=== PATIENT | female | born 1985 | race Caucasian/White ===

== ENCOUNTER 2017-06-22 07:08 | Day surgery (SDC) | payer OTHER ==
[2017-06-22] MEDS ORDERED: NS 1,000 ML IV ONE (07:20)
--- NOTE | 2017-06-22 07:38 | CPEKG ---
Heart Rate: 92 RR Interval: 652 P-R Interval: 140 QRSD Interval: 82 QT Interval: 336 QTC Interval: 416 P [place]: 78 QRS [place]: 83 T Wave [place]: 29 EKG Severity - ABNORMAL ECG - EKG Impression: SINUS RHYTHM EKG Impression: RIGHT ATRIAL ABNORMALITY Electronically Signed By: Dean Marie 22-Jun-2017 08:44:43
--- NOTE | 2017-06-22 07:54 | PDANEPAE ---
ANE History of Present Illness 32 yo female with h/o tachycardia. ANE Past Medical History - Cardiovascular History Hx Hypertension: No Hx Arrhythmias: Yes Hx Chest Pain: No Cardiovascular History Comment: POTS - postural orthostatic tachycardia syndrome - Pulmonary History Hx COPD: No Hx Asthma/Reactive Airway Disease: Yes Hx Recent Upper Respiratory Infection: Yes Hx Oxygen in Use at Home: No Pulmonary History Comment: RAD - last inhaler use about 2 weeks ago. Has about a yearly ER visit for RAD, No intubations. Current sore throat. Strep culture negative. No other symptoms - no cough, nasal congestion/rhinorrhea, fever - Neurologic History Hx Cerebrovascular Accident: No Hx Seizures: No Neurologic History Comment: restless leg syndrome. narcolepsy - Endocrine History Hx Diabetes: No Hypothyroid: Yes Endocrine History Comment: h/o hypothyroidism, no current meds. h/o hyperaldosteronism and adrenal insufficiency, all resolved - Renal History Hx Renal Disorders: No - Liver History Hx Hepatic Disorders: No - Neurological & Psychiatric Hx Hx Neurological and Psychiatric Disorders: Yes Neurological / Psychiatric History Comment: MDD - had ECT in 2012, now manages with meds - Cancer History Hx Cancer: No - GI History GERD: mild - Chronic Pain History Chronic Pain: No ANE Review of Systems Review of Systems: - Systems Constitutional: Reports: no symptoms EENMT: Reports: sore throat (since beginning of May - Strep test negative, no other symptoms) Cardiac: Reports: irregular heart rate Respiratory: Reports: no symptoms ANE Patient History - Allergies Allergies/Adverse Reactions: Penicillins Allergy (Verified 06/17/17 11:33) Rash - Home Medications Home Medications: Albuterol [Proventil Inhaler HFA (*)] 1 - 2 puffs IH DAILY PRN 06/17/17 [Last Taken Unknown] Cetirizine [ZyrTEC 10 mg (*)] 10 mg PO DAILY 06/17/17 [Last Taken Unknown] Fludrocortisone Acetate [Florinef 0.1 MG (RX)] 0.1 mg PO DAILY 06/17/17 [Last Taken Unknown] Gabapentin [Neurontin 300 MG (*)] 600 mg PO HS 06/17/17 [Last Taken Unknown] Levomefolate/Algal Oil [Deplin-Algal Oil 15 mg Capsule] 1 each PO DAILY [Last Taken Unknown] Lisdexamfetamine Dimesylate [Vyvanse] 50 mg PO DAILY 06/17/17 [Last Taken Unknown] Mometasone 220Mcg Inhaler [Asmanex Inh (*)] 2 - 4 puffs IH BID 06/17/17 [Last Taken Unknown] Montelukast Sodium [Singulair 10 mg (*)] 10 mg PO DAILY@1800 06/17/17 [Last Taken Unknown] Naproxen 200 mg PO Q2D PRN 06/17/17 [Last Taken Unknown] Sertraline HCl [Zoloft 100mg (*)] 200 mg PO DAILY 06/17/17 [Last Taken Unknown] Sertraline HCl [Zoloft 25mg (*)] 25 mg PO DAILY 06/17/17 [Last Taken Unknown] rOPINIRole HCL [Requip 1mg (*)] 1 mg PO DAILY 06/17/17 [Last Taken Unknown] rOPINIRole HCL [Requip Xl] 2 mg PO DAILY 06/17/17 [Last Taken Unknown] - NPO status NPO Status: no food or drink >8 hours - Anes Hx Anes Hx: no prior problems - Family Anes Hx Family Anes Hx: neg - N/A ANE Labs/Vital Signs - Vital Signs Heart Rate: 117 Height: 183 cm Weight: 70 kg ANE Physical Exam - Airway Neck exam: FROM Mallampati Score: Class 2 Mouth exam: normal dental/mouth exam - Pulmonary Pulmonary: clear to auscultation - Cardiovascular Cardiovascular: tachycardia - ASA Status ASA Status: III ANE Anesthesia Plan Anesthesia Plan: general endotracheal anesthesia
[2017-06-22 07:57] VITALS: PULSE 117
[2017-06-22 07:57] LABS: PLATELET COUNT 200 10^3/uL (150-400)
[2017-06-22] MEDS ORDERED: MIDAZOLAM 2 MG/2 ML VIAL IVP ONE (07:58)
[2017-06-22 08:07] LABS: INR 0.99 (0.83-1.16); PROTIME(PATIENT) 13.3 SEC (12.0-15.0)
[2017-06-22] MEDS ORDERED: ALBUTEROL 60 PUFFS/8 GM MDI IH ONE (08:20)
[2017-06-22] MEDS ORDERED: HEPARIN 10,000 UNIT/10 ML MDV (1,000 UNIT/ML) ONE (08:28)
[2017-06-22] MEDS ORDERED: BUPIVACAINE 0.5% 30 ML SDV ONE (08:28)
[2017-06-22] MEDS ORDERED: LIDOCAINE 1% 300 MG/30 ML SDV ONE (08:28)
[2017-06-22] MEDS ORDERED: ISOPROTERENOL HCL/D5W 0.2 MG/50 ML BAG IV ONE (08:29)
--- NOTE | 2017-06-22 08:42 | PDGENHP ---
History & Physical Chief Complaint: palpitations History of Present Illness: palpitations Relevant Physical Exam: [id number] Cardiorespiratory Assessment: long rp tach svt vs at for eps and ablation if svt induced
[2017-06-22] MEDS ORDERED: PROPOFOL/EMULSION 500 MG/50 ML BOTTLE IV ONE ×4 (09:12→09:39)
[2017-06-22] MEDS ORDERED: ROCURONIUM 50 MG/5 ML VIAL ONE ×2 (09:16→10:06)
[2017-06-22] MEDS ORDERED: ONDANSETRON 4 MG/2 ML VIAL ONE (09:37)
[2017-06-22] MEDS ORDERED: DEXAMETHASONE 4 MG/ML VIAL ONE ×2 (09:37)
[2017-06-22] MEDS ORDERED: PHENYLEPHRINE HCL 100 MCG/ML SYR ONE (09:38)
[2017-06-22] MEDS ORDERED: SUGAMMADEX SODIUM 200 MG/2 ML VIAL IVP ONE (10:52)
[2017-06-22] MEDS ORDERED: ALBUTEROL 60 PUFFS/8 GM MDI IH PRN (11:07)
[2017-06-22] MEDS ORDERED: NAPROXEN PO PRN (11:07)
[2017-06-22] MEDS ORDERED: NALOXONE HCL 0.4 MG/ML INJ IVP PRN (11:14)
[2017-06-22] MEDS ORDERED: ALBUTEROL 3 ML DEYVIAL IH PRN (11:14)
[2017-06-22] MEDS ORDERED: ACETAMINOPHEN 500 MG TAB PO PRN (11:14)
[2017-06-22] MEDS ORDERED: LR 500 ML IV PRN (11:14)
[2017-06-22] MEDS ORDERED: PROMETHAZINE HCL 25 MG/ML INJ IVP PRN (11:14)
--- NOTE | 2017-06-22 11:16 | POSTANESTH ---
Post Anesthetic Evaluation Cardiovascular Status: Normal, Stable Respiratory Status: Normal, Stable Level of Consciousness/Mental Status: Can Participate in Eval, Alert and Oriented Pain Control: Adequate, Prn Tx Ordered Nausea/Vomiting Control: Adequate, Prn Tx Ordered Complications Possibly Related to Anesthesia: None Noted
--- NOTE | 2017-06-22 11:17 | EPPROC ---
Electrophysiology Procedure Note: DIAGNOSTIC ELECTROPHYSIOLOGIC STUDY INDICATION: Long RP tachycardia, AT vs sinus tachycardia PROCEDURE: Catheters & Anesthesia: The patient arrived in the Electrophysiology Laboratory in the fasting state. The right clavicular region, right groin, & left groin area were prepped & draped in the usual sterile manner. Dr. Oracio Beach administered propofol anesthesia. Appropriate non-invasive blood pressure, pulse oximetry & end- tidal CO2 monitoring was established. All catheters were placed percutaneously using the modified Seldinger technique , and advanced into position under fluoroscopic guidance. One #7 Vietnamese deflectable octapolar electrode catheter was advanced to the His-bundle position via the L femoral vein (2mm spacing). One #7 Vietnamese deflectable 20 pole catheter was advanced to the eileen terminalis via the R femoral vein. One #7 Vietnamese deflectable catheter with 10 pairs of electrodes was placed via the L femoral vein into the coronary sinus. Programmed stimulation was performed from the right atrium, right ventricle and coronary sinus (left atrium). Parahisian pacing demonstrated constant H-A interval with changing V-A intervals and stimulus-A intervals during capture and loss of capture of proximal RBB proving retrograde conduction over AV node. There was no antegrade accessory pathway conduction. Heparin was administered. No sustained reentrant tachycardia was induced during programmed stimulation at baseline or during graded doses of isoproterenol up to 8 mcg/min. The catheters were removed. The patient was transferred to the cardiovascular holding area in stable condition. Vascular access sheaths were removed in the holding area. There were no apparent complications. SCL 575 ms AH 65 ms HV 40 ms Antegrade AV node FPERP 350 ms SPERP 340 ms WBB 330 ms Retrograde AV node WBB 290 ms CONCLUSIONS 1. Normal sinus and AV node function. 2. No evidence of accessory AV pathway presence. 3. No sustained arrhythmias induced. 4. No apparent complications. Patient Problems: Problems Problem Status Onset Palpitations Acute
[2017-06-22] MEDS ORDERED: MONTELUKAST SODIUM 10 MG TAB PO SCH (18:00)
[2017-06-22] MEDS ORDERED: GABAPENTIN 300 MG CAP PO SCH (21:00)
[2017-06-22] MEDS ORDERED: MOMETASONE 220MCG INHALER IH SCH (21:00)
[2017-06-23] MEDS ORDERED: FLUDROCORTISONE ACETATE 0.1 MG TAB PO SCH (09:00)
[2017-06-23] MEDS ORDERED: ROPINIROLE HCL 2 MG PO SCH (09:00)
[2017-06-23] MEDS ORDERED: SERTRALINE HCL 100 MG TAB PO SCH (09:00)
[2017-06-23] MEDS ORDERED: NON-FORMULARY NEW DRUG (Levomefolate/Algal Oil [Deplin-Algal Oil 15 Mg Capsule] 1 EACH) PO SCH (09:00)
[2017-06-23] MEDS ORDERED: LISDEXAMFETAMINE DIMESYLATE 50 MG PO SCH (09:00)
[2017-06-23] MEDS ORDERED: SERTRALINE HCL 25 MG TAB PO SCH (09:00)
[2017-06-23] MEDS ORDERED: CETIRIZINE 10 MG TAB PO SCH (09:00)
== END 2017-06-22 17:18 | disposition home or self-care (01) ==
LOC: FSGY 07:08 → FCATH 17:18
PROVIDERS: ATTEND Internal Medicine Cardiovascular Disease
PROC: 4A023FZ Measurement of Cardiac Rhythm, Percutaneous Approach (ICD-10-PCS; principal; 2017-06-22)
PROC: 5A1213Z Performance of Cardiac Pacing, Intermittent (ICD-10-PCS; principal; 2017-06-22)
DX: R00.2 Palpitations (principal); I49.8 Other specified cardiac arrhythmias; E03.9 Hypothyroidism, unspecified; Z88.0 Allergy status to penicillin
CPT/HCPCS: C1731; J1100; J1644; J2370; J2405; J2704

== ENCOUNTER 2017-06-26 13:02 | Emergency (ER) | payer OTHER ==
[2017-06-26 14:18] VITALS: TEMP 98.8
--- NOTE | 2017-06-26 14:32 | EDPHY ---
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 Patient states she had an episode of near-syncope and subsequent Holter monitor. This prompted Dr. Marie to take the patient to photofinishing laboratory worker for possible SVT ablation. The procedure was done on 06/22/2017. Patient has had no complication and has been doing well. 1 2 days ago she developed left groin discomfort. She feels that radiates down her left leg. She has had no increased swelling. She has had mild tingling but no numbness. No motor function loss. Patient has had no surrounding redness. No fever. Occasional mild chills. REVIEW OF SYSTEMS: My complete review of systems is negative except as mentioned in the HPI. Past Medical/Surgical History: Includes depression, asthma, celiac disease, pots, endocrine issues, hypothyroidism Past surgical history: Denies Social history: Patient does not smoke Smoking Status: Never smoked Physical Exam: 37.3, 114/89, 90, 16, 98% on room air GENERAL: Well-appearing, in no acute distress, alert. HEENT: Eyes normal to inspection, no signs of dehydration. RESPIRATORY: Clear to auscultation bilaterally, no rales, rhonchi or wheezing. CVS: Regular rate and rhythm, no rubs, murmurs, or gallops. ABDOMEN: Soft, nontender, nondistended, no organomegaly. Groin: Patient's left or right groin appear normal. There are small stick sites with no surrounding ecchymosis, bruising or warmth. BACK: Normal to inspection, no CVA tenderness. SKIN: Normal color, no rash, warm, dry. No pallor. EXTREMITIES: No pedal edema, no calf tenderness, no Homans sign or cords, no joint swelling. NEURO/PSYCH: Alert and oriented, normal mood and affect, normal motor sensory exam. No obvious cranial nerve deficit. Constitutional: Initial Vital Signs Temperature (C) 37.3 C 06/26/17 13:09 Heart Rate 90 06/26/17 13:09 Respiratory Rate 16 06/26/17 13:09 Blood Pressure 114/89 H 06/26/17 13:09 O2 Sat (%) 98 06/26/17 13:09 O2 Delivery Mode Room Air Allergies/Adverse Reactions: Penicillins Allergy (Verified 06/17/17 11:33) Rash Home Medications: Medication Instructions Recorded Albuterol [Proventil Inhaler HFA 1 - 2 puffs IH DAILY PRN 06/17/17 (*)] Cetirizine [ZyrTEC 10 mg (*)] 10 mg PO DAILY 06/17/17 Fludrocortisone Acetate [Florinef] 0.1 mg PO DAILY 06/17/17 Gabapentin [Neurontin 300 MG (*)] 600 mg PO HS 06/17/17 Levomefolate/Algal Oil 1 each PO DAILY 06/17/17 [[place]plin-Algal Oil 15 mg Capsule] Lisdexamfetamine Dimesylate 50 mg PO DAILY 06/17/17 [Vyvanse] Mometasone 220Mcg Inhaler [Asmanex 2 - 4 puffs IH BID 06/17/17 Inh (*)] Montelukast Sodium [Singulair 10 10 mg PO DAILY@1800 06/17/17 mg (*)] Naproxen 200 mg PO Q2D PRN 06/17/17 Sertraline HCl [Zoloft 100mg (*)] 200 mg PO DAILY 06/17/17 Sertraline HCl [Zoloft 25mg (*)] 25 mg PO DAILY 06/17/17 rOPINIRole HCL [Requip 1mg (*)] 1 mg PO DAILY 06/17/17 rOPINIRole HCL [Requip Xl] 2 mg PO DAILY 06/17/17 Medical Decision Making - Diagnostics Imaging Results: Imaging Impressions Pseudoaneurysm Repair US 06/26/17 14:34 Impression: No ultrasound evidence of pseudoaneurysm. Findings discussed with NITZA MCLAIN 06/26/2017 at 16:08. ED Course/Re-evaluation: In the emergency department I discussed possible etiologies with the patient. I answered all her questions. Ultrasound of the left groin was ordered. Ultrasound: Please refer the dictated report. No acute disease noted. I discussed the results with the patient. I answered all her questions. She was given warnings prior to leaving. She will return with worsening symptoms. At time of discharge she was neurovascularly intact distally. Differential Diagnosis: My differential includes but is not limited to see is pseudo aneurysm, aneurysm , mass, hematoma, neuropraxis Departure - Departure Disposition: Home, Routine, Self-Care Clinical Impression: Lt groin pain Condition: Good Instructions: Groin Pain (ED) Additional Instructions: Return with increasing pain, weakness, numbness, color change to the leg or any other concerns. Referrals: Jaky Pineda MD [Primary Care Provider] - 2-3 days without fail
[2017-06-26 16:55] VITALS: BP 122/94; PULSE 76; RESP 16; O2SAT 98
== END 2017-06-26 16:54 | disposition home or self-care (01) ==
DX: R10.32 Left lower quadrant pain (principal); J45.909 Unspecified asthma, uncomplicated